=== PATIENT | female | born 1985 | race American Indian/Alaskan Native ===

== ENCOUNTER 2016-08-25 15:05 | Emergency (ER) | payer OTHER ==
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
[2016-08-26 02:33] VITALS: BP 138/86
== END 2016-08-26 02:33 | disposition home or self-care (01) ==
LOC: ED 15:05
DX: M54.2 Cervicalgia (principal); M54.6 Pain in thoracic spine; M25.512 Pain in left shoulder; V49.49XA Driver injured in collision with other motor vehicles in traffic accident, initial encounter; Y93.9 Activity, unspecified; Y92.9 Unspecified place or not applicable; Y99.9 Unspecified external cause status
CPT/HCPCS: 70450; 71020; 72040; 72080; 81025; 99284

== ENCOUNTER 2016-12-30 00:05 | Emergency (ER) | payer SELFPAY ==
[2016-12-30 05:17] VITALS: BP 147/93
[2016-12-30] MEDS ORDERED: BICILLIN L-A IM ONE (07:52)
--- NOTE | 2016-12-30 07:55 | Emergency Department Report ---
ED ENT HPI - General Chief complaint: Dental/Oral Stated complaint: MOUTH PAIN SWOLLEN GUM Time Seen by Provider: 12/30/16 07:44 Source: patient Mode of arrival: Ambulatory Limitations: No Limitations - History of Present Illness MD complaint: tooth pain (right upper) -: Gradual Severity: moderate Quality: sharp Consistency: constant Improves with: none Worsens with: none Context- Dental: history of dental caries Associated Symptoms: gum swelling. denies: fever, cough, toothache, pain with swallowing, sore throat, tinnitus, hearing loss, discharge from ear, rhinorrhea - Related Data Previous Rx's Medication Instructions Recorded Last Taken Type Ibuprofen [Motrin] 800 mg PO Q8HR PRN #60 tablet 04/04/15 Unknown Rx traMADol [Ultram] 50 mg PO Q6HR PRN #14 tablet 04/04/15 Unknown Rx Cyclobenzaprine [Flexeril] 10 mg PO TID PRN #10 tablet 08/26/16 Unknown Rx Ibuprofen [Motrin] 600 mg PO Q8H PRN #25 tablet 08/26/16 Unknown Rx Amoxicillin [Trimox CAP] 500 mg PO BID #20 capsule 12/30/16 Unknown Rx traMADol [Ultram] 50 mg PO Q6HR PRN #10 tablet 12/30/16 Unknown Rx Allergies Allergy/AdvReac Type Severity Reaction Status Date / Time No Known Allergies Allergy Verified 04/04/15 01:52 ED Dental HPI - General Chief complaint: Dental/Oral Stated complaint: MOUTH PAIN SWOLLEN GUM Time Seen by Provider: 12/30/16 07:44 Source: patient Mode of arrival: Ambulatory Limitations: No Limitations - Related Data Previous Rx's Medication Instructions Recorded Last Taken Type Ibuprofen [Motrin] 800 mg PO Q8HR PRN #60 tablet 04/04/15 Unknown Rx traMADol [Ultram] 50 mg PO Q6HR PRN #14 tablet 04/04/15 Unknown Rx Cyclobenzaprine [Flexeril] 10 mg PO TID PRN #10 tablet 08/26/16 Unknown Rx Ibuprofen [Motrin] 600 mg PO Q8H PRN #25 tablet 08/26/16 Unknown Rx Amoxicillin [Trimox CAP] 500 mg PO BID #20 capsule 12/30/16 Unknown Rx traMADol [Ultram] 50 mg PO Q6HR PRN #10 tablet 12/30/16 Unknown Rx Allergies Allergy/AdvReac Type Severity Reaction Status Date / Time No Known Allergies Allergy Verified 04/04/15 01:52 ED Review of Systems ROS: Stated complaint: MOUTH PAIN SWOLLEN GUM Other details as noted in HPI Comment: All other systems reviewed and negative Constitutional: no symptoms reported, see HPI. denies: chills, diaphoresis, fever Eyes: as per HPI. denies: eye pain ENT: as per HPI, dental pain. denies: ear pain, throat pain, hearing loss, epistaxis Respiratory: no symptoms reported, see HPI. denies: cough, orthopnea, shortness of breath, SOB with exertion Cardiovascular: as per HPI. denies: chest pain, palpitations, dyspnea on exertion, orthopnea Endocrine: no symptoms reported, see HPI. denies: excessive sweating, flushing Gastrointestinal: as per HPI. denies: abdominal pain, nausea, vomiting Genitourinary: as per HPI. denies: urgency, dysuria Musculoskeletal: as per HPI. denies: back pain Skin: as per HPI. denies: rash, lesions Neurological: as per HPI. denies: headache Psychiatric: as per HPI. denies: anxiety, depression Hematological/Lymphatic: as per HPI. denies: easy bleeding ED Past Medical Hx - Past Medical History Previous Medical History?: No - Surgical History Past Surgical History?: No - Family History Family history: no significant - Social History Smoking Status: Never Smoker Substance Use Type: None - Medications Home Medications: Home Medications Medication Instructions Recorded Confirmed Last Taken Type Ibuprofen [Motrin] 800 mg PO Q8HR PRN #60 tablet 04/04/15 Unknown Rx traMADol [Ultram] 50 mg PO Q6HR PRN #14 tablet 04/04/15 Unknown Rx Cyclobenzaprine [Flexeril] 10 mg PO TID PRN #10 tablet 08/26/16 Unknown Rx Ibuprofen [Motrin] 600 mg PO Q8H PRN #25 tablet 08/26/16 Unknown Rx Amoxicillin [Trimox CAP] 500 mg PO BID #20 capsule 12/30/16 Unknown Rx traMADol [Ultram] 50 mg PO Q6HR PRN #10 tablet 12/30/16 Unknown Rx ED Physical Exam - General Limitations: No Limitations General appearance: alert, in no apparent distress - Head Head exam: Present: atraumatic - Eye Eye exam: Present: normal appearance, PERRL - ENT ENT exam: Present: normal exam, mucous membranes moist, TM's normal bilaterally , normal external ear exam - Expanded ENT Exam Expanded Mouth exam: Present: normal external inspection, tongue normal, other (no ludwigs no abscess). Absent: trismus, muffled voice, tongue elevation Teeth exam: Present: dental caries (r upper molar), gingival enlargement (over canine r upper). Absent: fractured tooth #, dental tenderness # 1 - Other (gum dz) 2 - Other (caries) Throat exam: Positive: normal inspection - Neck Neck exam: Present: normal inspection, full ROM. Absent: tenderness, meningismus, lymphadenopathy, thyromegaly - Respiratory Respiratory exam: Present: normal lung sounds bilaterally. Absent: respiratory distress, wheezes, rales, rhonchi, stridor - Cardiovascular Cardiovascular Exam: Present: regular rate, other (hr 88 on exam). Absent: normal rhythm, bradycardia, tachycardia, irregular rhythm - GI/Abdominal GI/Abdominal exam: Present: soft - Rectal Rectal exam: Present: deferred - Extremities Exam Extremities exam: Present: normal inspection, full ROM, normal capillary refill. Absent: tenderness, pedal edema, joint swelling - Back Exam Back exam: Present: normal inspection, full ROM. Absent: tenderness, CVA tenderness (R), CVA tenderness (L) - Neurological Exam Neurological exam: Present: alert, altered, oriented X3, CN II-XII intact, normal gait, reflexes normal. Absent: abnormal gait, motor sensory deficit - Psychiatric Psychiatric exam: Present: normal affect, normal mood. Absent: depressed, agitated - Skin Skin exam: Present: warm, dry, intact, normal color. Absent: rash ED Course Vital Signs 12/30/16 12/30/16 00:34 05:15 Temperature 98.3 F 98.6 F Pulse Rate 93 H 85 Respiratory 18 18 Rate Blood Pressure 149/98 147/93 O2 Sat by Pulse 100 100 Oximetry - Reevaluation(s) Reevaluation #1: 12/30/16 vss non ill appearing taking po no ludwigs no abscess ru dental caries and a/c gum dz needs dmd discussed w pt verbalizes understanding medicated dc poc to dmd ED Medical Decision Making - Medical Decision Making vss. non ill no fever non toxic no dental emergency Critical care attestation.: If time is entered above; I have spent that time in minutes in the direct care of this critically ill patient, excluding procedure time. ED Disposition Clinical Impression: Dental caries Disposition: DC-01 TO HOME OR SELFCARE Is pt being admited?: No Does the pt Need Aspirin: No Condition: Stable Instructions: Dental Caries (ED) Additional Instructions: good oral care follow up DMD mya take med as ordered Prescriptions: Amoxicillin [Trimox CAP] 500 mg PO BID #20 capsule traMADol [Ultram] 50 mg PO Q6HR PRN #10 tablet PRN Reason: Pain Referrals: PRIMARY CARE, [Primary Care Provider] - 3-5 Days Forms: Work/School Release Form(ED) Time of Disposition: 07:54
== END 2016-12-30 08:17 | disposition home or self-care (01) ==
LOC: ED 00:05
DX: K08.89 Other specified disorders of teeth and supporting structures (principal)
CPT/HCPCS: 96372; 99282; J0561

== ENCOUNTER 2021-07-15 12:07 | Outpatient (CLI) | payer OTHER ==
--- NOTE | 2021-07-16 09:32 | Electrocardiograph Report ---
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
== END 2021-07-15 12:08 | disposition home or self-care (01) ==
LOC: CARD 12:07
DX: Z01.818 Encounter for other preprocedural examination (principal)
CPT/HCPCS: 93005; 93010